=== PATIENT | female | born 1940 | race Caucasian/White ===

== ENCOUNTER → 2020-07-07 10:43 | Outpatient (BNVA) | payer MEDICARE, OTHER, SELFPAY | PROVIDERS: PCP Family Medicine; Referring Provider Family Medicine; Visit Provider Student in an Organized Health Care Education/Training Program | DX: M17.11 Unilateral primary osteoarthritis, right knee (principal) | CPT/HCPCS: 99213 ==

== ENCOUNTER → 2020-07-24 13:51 | Outpatient (BNVA) | payer MEDICARE, OTHER, SELFPAY | PROVIDERS: PCP Family Medicine; Referring Provider Family Medicine; Visit Provider Physician Assistant Surgical | DX: Z01.818 Encounter for other preprocedural examination (principal); M17.11 Unilateral primary osteoarthritis, right knee ==

== ENCOUNTER 2020-08-04 02:39 | Outpatient (CLI) | payer MEDICARE, OTHER, SELFPAY ==
[2020-08-04 12:19] LABS: Source Nasal/Nares
[2020-08-04 19:08] LABS: COVID-19 PCR Negative (Negative)
== END 2020-08-04 02:40 | disposition home or self-care (01) ==
LOC: LBO 02:40
PROVIDERS: PCP Family Medicine; Visit Provider Student in an Organized Health Care Education/Training Program
DX: Z20.822 Contact with and (suspected) exposure to COVID-19 (principal); Z01.818 Encounter for other preprocedural examination
CPT/HCPCS: 36415; 80048; 85027; 87635

== ENCOUNTER 2020-08-04 03:18 | Outpatient (CLI) | payer MEDICARE, OTHER, SELFPAY ==
[2020-08-04 10:53] LABS: HCT 39.1 % (36.0-46.0); HGB 12.8 g/dL (11.2-15.7); MCH 31.9 pg (27.0-33.0); MCHC 32.7 % (32.0-36.0); MCV 97.5 fL (80-95); MPV 10.4 fL (8.0-11.0); Platelet Count 280 10^3/uL (130-400); RBC 4.01 10^6/uL (3.93-5.22); RDW 12.5 % (11.7-14.6); RDW-SD 44.8 fL; WBC 5.55 10^3/uL (4.4-10.8)
--- NOTE | 2020-08-04 11:30 | RT.EKG_ITS ---
APPROVED REPORT Exam: Resting ECG Reason for Exam: PRE OP TKA Patient Location: O HR:49 bpm ECG Measurements Heart Rate 49 AXIS NE 166 P 47 QRSd 94 QRS 25 QT 427 T 43 QTc 385 Conclusion Sinus bradycardia...rate< 60 Atrial premature complex...SV complex w/ short R-R interval
[2020-08-04 11:52] LABS: Anion Gap 9.6 mmol/L (3-11); BUN 45 mg/dL (7-18); CO2 27.4 mmol/L (21.0-32.0); CREATININE 2.2 mg/dL (0.55-1.02); Calcium 9.6 mg/dL (8.5-10.1); Chloride 106 mmol/L (98-107); Estimated GFR 21.42 (mL/min/1.73m2); Glucose 114 mg/dL (74-106); Potassium 4.6 mmol/L (3.5-5.1); Sodium 143 mmol/L (136-145)
== END 2020-08-04 03:19 | disposition home or self-care (01) ==
LOC: LBO 03:18
PROVIDERS: PCP Family Medicine; Visit Provider Student in an Organized Health Care Education/Training Program
DX: M25.561 Pain in right knee (principal); M17.11 Unilateral primary osteoarthritis, right knee; Z01.818 Encounter for other preprocedural examination; Z01.812 Encounter for preprocedural laboratory examination
CPT/HCPCS: 36415; 80048; 85027

== ENCOUNTER 2020-08-05 07:48 | Day surgery (SDC) | payer MEDICARE, OTHER, SELFPAY ==
[2020-08-05] VITALS (9 sets, daily range): BP systolic 130–161; BP diastolic 53–68; PULSE 48–67; RESP 12–163; TEMP 35.9–36.6; O2SAT 95–99; BMI 39.5
--- NOTE | 2020-08-05 07:58 | W.ANESPOSTOP ---
Postoperative Evaluation Date, Time and Location Date Performed: 08/05/20 Time Performed: 07:58 Patient Location: Day Surgery Unit Vital Signs Most Recent Manually Entered Vital Signs: Adult Blood Pressure: 110/71 Heart Rate: 71 Respirations: 16 Oxygen Saturation (%): 99 Temperature (C): 36.4 C Pain Score (0-10 Scale): 0 Assessment Mental Status: Awake (Alert & Oriented to Patient Baseline) Airway and Respiratory Function: Patent airway with normal (patient baseline) respiratory exam Cardiovascular Function: Hemodynamically Stable Hydration Status: Adequately Hydrated Nausea & Vomiting: No Nausea or Vomiting Pain: Pt. Denies Any Pain Peripheral Nerve Block: Patient did not receive a nerve block
[2020-08-05] MEDS: Acetaminophen 500 MG TAB 1000 MG PO (08:58)
[2020-08-05] MEDS: Lactated Ringers 1,000 ML 80 ML IV (09:00)
--- NOTE | 2020-08-05 09:16 | ANES.PREOP_ITS ---
General Info Date of Service Date Performed: 08/05/20 Height: 4 ft 10 in Weight: 85.8 kg Body Mass Index (BMI): 39.5 Surgical Procedure: Operation Date: 08/05/20 09:55 Proposed Procedures Side Surgeon p Knee Total Arthroplasty Right Nomi Alvarenga MD Meds Allergies and Home Medications Allergies Allergy/AdvReac Type Severity Reaction Status Date / Time Beta-Blockers Allergy Halucinatio Unverified 08/05/20 08:14 (Beta-Adrenergic Bloc ns acetaminophen [From Percocet] AdvReac upsest Verified 08/05/20 08:14 stomach erythromycin base AdvReac Other (See Verified 08/05/20 08:49 Comment) oxycodone [From Percocet] AdvReac upsest Verified 08/05/20 08:14 stomach Home Medication Medication Instructions Recorded aspirin 81 mg PO DAILY tab-cap 08/09/17 cholecalciferol (vitamin D3) 1,000 unit PO DAILY 08/09/17 levothyroxine 100 mcg PO DAILY tab-cap 08/09/17 meclizine 12.5 mg PO TID PRN 08/09/17 omeprazole magnesium [Prilosec Otc] 20 mg PO DAILY 08/09/17 sennosides [Senna] 2 tab-cap PO DAILY tab-cap 08/10/17 acetaminophen 500 mg tablet 1,000 mg PO Q6H PRN tab 07/08/20 albuterol sulfate 90 mcg/actuation 2 puff INHALATION Q4H PRN g 07/08/20 aerosol inhaler alprazolam 1 mg disintegrating 1 mg PO TID tab 07/08/20 tablet calcium carbonate 650 mg calcium 1,300 mg PO AC tab 07/08/20 (1,625 mg) tablet diclofenac sodium 1 % topical gel 2 g TOPICAL QID 07/08/20 diltiazem HCl 120 mg 120 mg PO QHS tab-cap 07/08/20 capsule,extended release 24 hr diltiazem HCl 240 mg 240 mg PO QAM cap 07/08/20 capsule,extended release 24 hr latanoprost 0.005 % eye drops 1 drp OPHTHALMIC (EYE) DAILY 07/08/20 sodium bicarbonate 650 mg tablet 650 mg PO BID 07/08/20 Current Visit Medications: Current Medications Generic Name Dose Route Start Last Admin Trade Name Freq PRN Reason Stop Dose Admin Acetaminophen 1,000 mg 08/05/20 06:00 08/05/20 08:58 Acetaminophen 500 Mg Tab PO 08/05/20 16:00 1,000 mg PREOP MIGUEL Administration Celecoxib 400 mg 08/05/20 06:00 Celecoxib 200 Mg Cap PO 08/05/20 16:00 PREOP MIGUEL Gabapentin 300 mg 08/05/20 06:00 Gabapentin 300 Mg Cap PO 08/05/20 16:00 PREOP MIGUEL Tranexamic Acid 1,000 mg/ 60 mls @ 360 mls/hr 08/05/20 06:00 Sodium Chloride IVPB 08/05/20 16:00 PREOP MIGUEL Tranexamic Acid 1,000 mg/ 60 mls @ 360 mls/hr 08/05/20 06:00 Sodium Chloride IVPB 08/05/20 16:00 DIRECTED MIGUEL Ringer's Solution 1,000 mls @ 80 mls/hr 08/05/20 06:00 08/05/20 09:00 IV 09/03/20 23:59 80 mls/hr INFUSION MIGUEL Administration Cefazolin Sodium/Dextrose 2 gm in 50 mls @ 100 mls/hr 08/05/20 06:00 Ancef Duplex IVPB 08/05/20 16:00 PREOP MIGUEL IV Miscellaneous Supplies 1 each 08/05/20 06:00 Iv Access IV 09/03/20 23:59 DIRECTED MIGUEL Sodium Chloride 0 ml 08/05/20 06:00 Normal Saline Flush 10 Ml Syr IV 09/03/20 23:59 PRN PRN Sodium Chloride 0 ml 08/05/20 06:00 Normal Saline 10 Ml Vial IJ 09/03/20 23:59 DIRECTED PRN Sterile Water 0 ml 08/05/20 06:00 Water,Injection,Sterile 10 Ml Vial IJ 09/03/20 23:59 DIRECTED PRN PFSH Active Problems Active Problems: Problem Status Onset Code Primary osteoarthritis of right knee M17.11 Medical History Medical History Afib Medical History Comments:: Controlled gerd Surgical History Surgical History History of appendectomy age 10 History of cardiac radiofrequency ablation (RFA) 2008--[facility] Brock Rai History of tonsillectomy and adenoidectomy age 13 History of total left knee replacement (TKR) 11/06/12--[facility] Tonsillectomy and adenoidectomy Trigger finger 2013-[facility] Dr. Gabriel Tobacco Smoking/Tobacco Use Status: Never Alcohol Alcohol Intake: never Substance Use Substance use type: does not use Vital Signs and Lab Results Vital Signs Most Recent Vital Signs in EMR: Most Recent Vital Signs Temp Pulse Resp BP Pulse Ox 36.6 C 67 16 146/62 H 96 08/05/20 08:27 08/05/20 08:27 08/05/20 08:27 08/05/20 08:27 08/05/20 08:27 Lab Results Blood Type / Crossmatch: No Data to Display Complete Blood Count: White Blood Count 5.55 10^3/uL (4.4-10.8) 08/04/20 10:45 08/04/20 Red Blood Count 4.01 10^6/uL (3.93-5.22) 08/04/20 10:45 08/04/20 Hemoglobin 12.8 g/dL (11.2-15.7) 08/04/20 10:45 08/04/20 Hematocrit 39.1 % (36.0-46.0) 08/04/20 10:45 08/04/20 Platelet Count 280 10^3/uL (130-400) 08/04/20 10:45 08/04/20 Complete Metabolic Panel: Sodium Level 143 mmol/L (136-145) 08/04/20 10:45 08/04/20 Potassium Level 4.6 mmol/L (3.5-5.1) 08/04/20 10:45 08/04/20 Chloride Level 106 mmol/L (98-107) 08/04/20 10:45 08/04/20 Carbon Dioxide Level 27.4 mmol/L (21.0-32.0) 08/04/20 10:45 08/04/20 Blood Urea Nitrogen 45 mg/dL (7-18) H 08/04/20 10:45 08/04/20 Creatinine 2.2 mg/dL (0.55-1.02) H 08/04/20 10:45 08/04/20 Estimated GFR/1.73 m2 21.42 (mL/min/1.73m2) 08/04/20 10:45 08/04/20 Calcium Level 9.6 mg/dL (8.5-10.1) 08/04/20 10:45 08/04/20 Glucose Level 114 mg/dL (74-106) H 08/04/20 10:45 08/04/20 Liver Function Panel: No Data to Display Coagulation Panel: No Data to Display Cardiac Panel: No Data to Display Arterial Blood Gas: No Data to Display Venous Blood Gas: No Data to Display Pancreas Panel: No Data to Display Thyroid Panel: No Data to Display Infectious Disease: Coronavirus (COVID-19)(PCR) Negative (Negative) 08/04/20 12:04 08/04/20 Coronavirus 2019 Source Nasal/Nares 08/04/20 12:04 08/04/20 Blood Cultures: No Data to Display Toxicology Panel: No Data to Display Imaging and Studies Imaging and Studies EKG Summary: Conclusion Sinus bradycardia...rate< 60 08/04Atrial premature complex...SV complex w/ short R-R interval Anesthesia Assessment and Plan Anesthesia History Personal History: No History of Anesthesia Complications Family History: No Family History of Anesthesia Complications Exercise Tolerance Exercise Tolerance: Metabolic Equivalents<4 Pertinent Negatives Pertinent Negatives: No Symptoms of GERD ( MEd for gerd. Well controlled) and No Major Cardiovascular Symptoms or Complaints Cardiac & Pulmonary Exam Cardiac Exam: Normal S1/S2 Heart Sounds Pulmonary Exam: Clear Bilateral Breath Sounds Airway Exam Known Difficult Airway: No Mallampati Class: 2 Mouth Opening: Normal (> 3cm) Thyromental Distance: Greater than 3 cm Neck Range of Motion: Full ROM Neck Circumference: Normal Teeth Condition: Normal Dentition and Removable Dentures/Plates Upper ASA Classification ASA Score: ASA 3 Emergency Case?: No NPO Status NPO Status: NPO Clears >2 hours, Solids >8 hours Anesthesia Plan Resuscitation Status: Full Code Anesthesia Technique: Spinal Anesthesia Airway Planned: Natural Airway Pain Management: Surgeon and patient request nerve block (Adductor) Monitors Used: Standard Monitors
[2020-08-05] MEDS: Gabapentin 300 MG CAP PO (09:28)
[2020-08-05] MEDS: ceFAZolin 2 GM/50 ML BAG IVPB (09:51)
[2020-08-05] MEDS: Normal Saline 20 ML VIAL (10:41)
[2020-08-05] MEDS: Ketorolac 30 MG/ML VIAL (10:41)
[2020-08-05] MEDS: Bupivacaine 0.25% Pres-Free 30 ML VIAL (10:42)
--- NOTE | 2020-08-05 10:57 | W.ANESNERVE ---
Nerve Block Single Injection Procedure Date and Time Date Performed: 08/05/20 Procedure Start: 09:40 Location Where Procedure Performed Procedure Location: PACU Reason Performed: Postoperative Analgesia Requesting Provider: Nomi Alvarenga Timeout Performed Timeout Performed: Yes Monitoring Used ECG, Blood Pressure and SpO2 Sterility Sterility: Hand Hygiene, Surgical Cap, Surgical Mask, Sterile Gloves and Chlorhexidine Sedation Given During Procedure Sedation Given (Indicate Dose Given): Versed IV Dose:: 1.5mg Patient Mental Status Patient Mental Status: Sedate with meaningful communication Nerve Block 1st Nerve Block: Laterality: Right Block Type: Adductor Canal Needle / Catheter Used: 100mm SonoPlex II Local Anesthetic Bolus (Indicate Dose Given): Lidocaine used for local infiltration of skin (2 ml), Injected in 3-5ml increments after negative blood aspiration and Bupivacaine 0.25% Dose:: 20ml Additives (Indicate Dose Given): None Ultrasound: Sterile probe cover and gel used Ultrasound Image Saved?: Yes Nerve Stimulator: Not Used Paresthesia: None Post Procedure Pain score (0-10): 0 Procedure Tolerated: No Complications Procedure Outcome: Successful Procedure Comment: assisted by chaim surface water manager Performed By: Sam Villanueva Supervised By: Will Carney
--- NOTE | 2020-08-05 11:42 | ROE_ITS ---
Operative Note Operative Note DATE OF PROCEDURE: 08/05/20 PRE-OP DIAGNOSIS: Right Knee Osteoarthritis POST-OP DIAGNOSIS: same PROCEDURE: Right Total Knee Replacement SURGEON: Nomi Alvarenga INSTRUCTION ASSISTANT PRINCIPAL: Marlon Lopez Refer to Anesthesia Record ESTIMATED BLOOD LOSS: 150 PATHOLOGY: none sent TOURNIQUET TIME: 0 COMPLICATIONS: None Patient was transported to: PACU Patient's condition: stable Implants: 1. Depuy Attune Cementless Cruciate Retaining Femoral Component, Size 3 2. Depuy Attune Cementless Rotating Platform Tibial Component, Size 3 3. Depuy Attune 3x8 CR/RP Poly 4. Depuy Attune Patellar Component, Size 35 Indications: I have seen Ban in clinic for symptoms of knee arthritis, confirmed with radiographic findings. She has exhausted nonoperative methods and was having significant limitations in daily function and desired better function and less pain. I discussed the technical details of a knee replaceme nt. I explained the risks of the procedure to include, but not limited to, bleeding, infection, pain, stiffness, fracture, damage to nerves and vessels, damage to muscles and tendons, loosening, need for repeat procedure, blood clot and cardiopulmonary demise. Despite these risks, Ban elected to proceed. Findings: There was significant signs of arthritis throughout the knee, mostly of the medial compartment with some disease of the patella. Procedure Description: Ban was greeted in the preoperative holding area where the correct side was identified and marked. The consent was reviewed with the patient and signed. The history and physical was updated. All questions were answered. Preoperative medications were administered: Acetaminophen 1000mg, Celebrex 400mg, and Gabapentin 300mg. An adductor canal block was then administered by the anesthesia team in the PACU. She was taken back to the operating room. A spinal anesthestic was then administered. The patient was placed into the supine position on the operating room table. A nonsterile tourniquet was placed high onto the leg but only used for cementing. Posts were placed for positioning during the procedure. All bony prominences were well padded. Prophylactic antibiotics in the form of Cefazolin were administered. 1g of Tranxemic Acid was given intravenously within 30 minutes of incision. The right leg was then prepped with Chloraprep and draped in a standard fashion with impervious stockinette. A second prep with Chloraprep was performed prior to application of Iodine impregnated skin protection. A timeout to confirm correct identity, side and site, procedure, allergies, anesthesia, and medical concerns was performed. With the knee in some flexion, a midline incision was made overlying the knee. Full thickness skin flaps were raised once the extensor mechanism was encountered. These were raised medially and laterally. Any bleeding was controlled with electrocautery. Once the extensor mechanism was fully exposed, a medial parapatellar arthrotomy was performed in a flexed position. All bleeding from the arthrotomy and the geniculate arteries was coagulated. A medial subperiosteal peel was performed with electrocautery to the midcoronal plane. Due to the significant varus defor mity the entire medial tibial plateau was exposed. The fat pad was removed while keeping the patellar tendon protected. The anterior distal femur synovium was removed for later visualization. The ACL and PCL were resected and the anterior horn of the lateral meniscus was transected. The knee was then flexed with the patella everted. Large osteophytes from the tibia were removed. Large osteophytes from the femur were removed. Using a step drill, and based on preoperative templating, the femoral canal was entered. This was done with a step drill without any difficulty. The intramedullary distal femoral cut guide was inserted, set to a 5 degree valgus cut and 9mm cut thickness. There was some hypoplasia of the lateral femoral condyle and any remnant cartilage of the medial femoral condyle was removed for appropriate thickness. The distal femoral cut guide was then held in position and pinned. With the soft tissues protected, the distal cut was performed. This was passed over a few times to ensure a planar cut. I then turned attention to the tibia. The extramedullary guide was placed onto the leg. The distal aspect was slid medial to adjust for position of center of ankle and stay in line with shaft of the tibia. Approximately 3-5 degrees of posterior slope was kept in the proximal cutting guide. The center of the guide was aligned with the PCL. The stylus was used to assess cut thickness. The medial side, most involved side, was set for a 3mm cut. This was then held in position and pinned into place with 2 additional pins and a cross pin for stability. The medial and lateral collateral ligaments were protected and the cut was performed. With this completed, it was assessed and noted to be of appropriate dimensions. The guide was removed. A spacer block was inserted and the knee was brought into extension. The 8mm spacer block provided full extension, without hyperextension and with stability of both the medial and lateral collateral ligaments was assessed. The pins from the femur and the tibia were then removed. The distal femur was then sized. The anterior stylus was placed onto the lateral ridge of the anterior femur. This indicated a size 3 femur. The external rotation of the guide was adjusted to 3 degrees to match the epicondylar axis, perpendicular to Lizella?s line. The 4-in-1 cutting guide was the placed. The posterior medial femur cut was evaluated and appeared of good thickness. The spacer block was inserted underneath the cutting guide and stability was confirmed in 90 degrees of flexion. An duran wing was used to confirm appropriate position of the anterior cut to avoid notching. This cutting guide was ensured to be flush on the cut surface and then pinned into place with headed pins. While protecting the soft tissues, quad tendon, and collateral ligaments, the anterior and posterior cuts were performed with a saw. The central two pins were removed and the posterior and anterior chamfers were cut next. The notch-cutting guide was placed. This was pinned to lateralize the femoral component as much as possible while keeping it flush on the cut surface. This was then pinned into position. A reciprocating saw was used to make the notch cut. A rasp smoothed the cut surfaces. The medial and lateral menisci were removed. A trial femoral component was then inserted, impacted down to the cut surfaces, and the lug holes were drilled. A provisional trial tibial component was placed and the knee was brought through range of motion. There was noted to be excellent extension and flexion. There was no significant instability. The patella was tracking without thumbs. A size 8mm polyethylene component provided the best range of motion and stability with less than 2mm gapping with medial and lateral stress and full extension without significant hyperextension. The tibial cut surface was fully exposed. The tibia was then sized as a 3. The tibia had been previously marked during trialing to correspond to the center of the tibial component to help with rotation. The trial was aligned to this marlon, approximately rotated to the medial 1/3rd of the tibial tubercle. The trial was pinned into place. The tibia was prepared with a reamer and a keel punch and lug holes. The knee was then brought into extension and the patella was measured as 22mm. Using the patellar clamp and cut guide, this was resected to a flat surface with at least 13mm of thickness remaining. The size 35 patella fit the best. This was oriented and then clamped into position. The lugs were drilled. The trial components were removed. The final components were opened on the back table. The periosteal and capsular tissues, especially posteriorly, around the knee were then systematically injected with a periarticular cocktail consisting of 50cc 0.25% Marcaine, 30mg Ketorolac, 20cc of Exparal and 50cc of injectable saline. The knee was thoroughly irrigated with a pulse lavage and dried. Irrisept was also used to irrigate the tissues. On the back table, with the implants opened, the cement was mixed. One batch of high viscosity cement was prepared with vacuum assistance. After the cement was ready a small amount was placed on the cut surface of the patella and the patellar button was clamped into position and held. While the cement was hardening, the cementless knee components were placed. Starting with the tibial component, the tibia was subluxed anteriorly and the lug holes of the component were lined up. The tibia was then impacted with an impactor and mallet until the tibial component was in contact with the tibia. The final polyethylene component was inserted. Then, the femoral component was inserted. The lug holes were aligned and the component was impacted into position. The knee was irrigated with Irrisept chlorhexadine solution. This was allowed to sit in the knee for 3 minutes. After the cement had finally cured, approximately 15min, the clamp was removed from the patella and the knee was taken through range of motion. The patella was tracking with a no-thumbs technique. The capsule was then reapproximated with a No. 1 Vicryl at multiple locations. The capsule was finally closed with a No. 2 Stratafix, barbed suture. The second dosing of 1g TXA was started. Deep tissues were then reapproximated with 0 Vicryl and 2-0 Vicryl. The skin was closed with a running 3-0 Monocryl in a subcuticular fashion. This was reinforced with skin glue. A Mepilex silver dressing was applied along with a [id number] TRACY wrap. A CryoCuff was a pplied. Ban was transferred to the hospital bed without difficulty an suffering no apparent complication. Ban has a good prognosis. Physical therapy will start today and without restrictions, weight-bearing as tolerated. Aspirin 81mg BID will be used for DVT prophylaxis.
--- NOTE | 2020-08-05 13:13 | W.ANESPOSTOP ---
Postoperative Evaluation Date, Time and Location Date Performed: 08/05/20 Time Performed: 13:14 Patient Location: Day Surgery Unit Vital Signs Most Recent Imported Vital Signs: Most Recent Vital Signs Temp Pulse Resp BP Pulse Ox 35.9 C L 61 163 H 130/63 95 08/05/20 13:06 08/05/20 13:06 08/05/20 13:06 08/05/20 13:06 08/05/20 13:06 Pain Score Most Recent Pain Score: Most Recent Pain Score Pain Level 0 1 08/05/20 13:06 Assessment Mental Status: Awake (Alert & Oriented to Patient Baseline) Airway and Respiratory Function: Patent airway with normal (patient baseline) respiratory exam Cardiovascular Function: Hemodynamically Stable Hydration Status: Adequately Hydrated Nausea & Vomiting: No Nausea or Vomiting Pain: Pain is tolerable per patient (Reports only slight ache) Peripheral Nerve Block: Regional nerve block not resolved at time of post operative discharge
--- NOTE | 2020-08-05 14:09 | PDOC.DSDIS_ITS ---
Discharge Plan Disposition Patient Disposition: HOME Condition: Good Discharge Details Reason For Visit: OA (R) KNEE Attending Provider: Nomi Alvarenga Home Meds and New Rx's Prescriptions: New acetaminophen 500 mg tablet 500 mg PO Q6H PRN PRN (Reason: pain) Qty: 90 RF: 3 aspirin 81 mg tablet,delayed release (DR/EC) 81 mg PO BID Qty: 60 RF: 0 hydrocodone-acetaminophen 5-325 mg tablet 1 tab PO Q4H PRN (Reason: pain) Qty: 14 RF: 0 gabapentin 300 mg capsule 300 mg PO QHS Qty: 7 RF: 0 Continued meclizine 12.5 MG tablet 12.5 mg PO TID PRNRF: 0 levothyroxine 100 MCG tablet 100 mcg PO DAILY RF: 0 omeprazole magnesium [Prilosec OTC] 20 MG tablet,delayed release (DR/EC) 20 mg PO DAILY RF: 0 cholecalciferol (vitamin D3) 1,000 UNIT tablet 1,000 unit PO DAILY RF: 0 sennosides [senna] 8.6 MG tablet 2 tab-cap PO DAILY RF: 0 alprazolam 1 mg tablet,disintegrating 1 mg PO TID RF: 0 calcium carbonate 650 mg calcium (1,625 mg) tablet 1,300 mg PO AC RF: 0 diclofenac sodium [Arthritis Pain (diclofenac)] 1 % gel 2 g topical QID RF: 0 diltiazem HCl 120 mg capsule,extended release 24hr 120 mg PO QHS RF: 0 diltiazem HCl 240 mg capsule,extended release 24hr 240 mg PO QAM RF: 0 latanoprost 0.005 % drops 1 drp ophthalmic (eye) DAILY RF: 0 sodium bicarbonate 650 mg tablet 650 mg PO BID RF: 0 albuterol sulfate [Ventolin HFA] 90 mcg/actuation HFA aerosol inhaler 2 puff inhalation Q4H PRNRF: 0 Discontinued aspirin 81 MG tablet,chewable 81 mg PO DAILY RF: 0 acetaminophen [Tylenol Extra Strength] 500 mg tablet 1,000 mg PO Q6H PRNRF: 0 Discharge Instructions Additional Instructions: Total Knee Discharge Instructions Activity: The most important activity is to walk. You should try to take short walks a few times a day. It is important that when resting you work on keeping the knee straight. Avoid putting a pillow behind the knee as this will encourage flexion. Work on range of motion exercises as provided by Physical Therapy. - Start outpatient physical therapy within 2 weeks. - You should wear the CLARICE hose on both legs for 2 weeks. You may remove these at night. You may also use any compression sock in place of the CLARICE hose. Dressing: You may remove the Dimitry wrap on your leg 2 days after your surgery and put on the CLARICE stocking given to you from the hospital. Keep the surgical dressing (underneath the DIMITRY wrap) in place for at least one week. After the first week it may be removed and replaced with light gauze and tape or nothing. The wound and dressing may get wet after 3 days but avoid soaking the dressing or otherwise it will need to be changed. Many people prefer covering the dressing with cling wrap (saran wrap) to minimize it from getting soaked. If it gets wet, just pat dry. If it starts to peel off then it will need to be changed . Medications: - You should take Tylenol as your primary pain control medications. - You have been prescribed a stronger pain medication Hydrocodone for breakthrough pain, take as needed as prescribed. - You should continue your stomach acid reduction agent Omeprazole to help reduce stomach acid and reflux. - You have been prescribed Gabapentin to take at night for restlessness and nerve pain. - You will be taking Aspirin 81mg twice a day for DVT prevention unless instructed otherwise. - If you have constipation you should take Colace or Miralax (both [id number]). It takes most people 3-4 days to have a bowel movement. Follow-up: 2 weeks If you have any acute concerns or questions, please do not hesitate to contact the office at [phone]. You may contact Dr. Alvarenga with any questions after hours through the hospital at [phone] or on his cell phone at [phone]. Referrals: Nomi Alvarenga MD [ [facility] STAFF PHYSICIAN] - Equipment/Supplies: Walker Activity:: Activity as Tolerated Shower/Bathe:: 72 hours Diet:: As Tolerated Discharge Orders Discharge Orders: Discharge Order (Routine); Ordered 08/05/20 Ordered By: Nomi Alvarenga DS: Diagnosis Discharge Diagnosis (1) Primary osteoarthritis of right knee: Status: Acute
--- NOTE | 2020-08-05 14:17 | IN_ITS ---
Date of service: 08/05/20 Time of Service: 13:45 PT Notes Visit Reasons: OA (R) KNEE Inpatient Physical Therapy Evaluation Date: 08/05/2020 Referring Doctor: Silvestre Lopez PT Orders: PT CONSULT: Status post right TKA Precautions: Fall, standard Patient Profile/Admitting Diagnosis: Patient postop day 0 status post right total knee replacement. PMHX: History of appendectomy age 10 History of cardiac radiofrequency ablation (RFA) 2008--[facility] Brock Rai History of tonsillectomy and adenoidectomy age 13 History of total left knee replacement (TKR) 11/06/12--[facility] Tonsillectomy and adenoidectomy Trigger finger 2013-[facility] Dr. Gabriel Social History/Home Situation: Patient lives alone in a home with 3 steps to enter. States that she is very active and does not utilize an assistive device at baseline. She owns both and FW W and a Rollator walker. Plans to stay with her sister for as long as she needs. Her sister has a single level home with 0 steps to enter. Equipment Owned/DME: FW W, 4 WW Subjective: Ban states that she is feeling well. She rates her pain at 0/10. States that she is very active, and is looking forward to getting back to her normal activities. She reports knee instability prior to surgery, although was able to walk independently. States that she was managing stairs 1 step at a time. Objective: General Observation: Resting in bed in initiation of session. IV in right upper extremity, Cryo/Cuff in place to right knee. Mental Status: A and O x3 Pain: 0/10 Vital Signs: Monitored by nursing ROM: Right Upper Extremity: WFL Left Upper Extremity: WFL Right Lower Extremity: Patient actively demonstrates 0 to 90 degrees of knee flexion. PROM not assessed. Left Lower Extremity: WFL Strength: Right Upper Extremity: WFL Left Upper Extremity: WFL Right Lower Extremity: Patient able to perform active SLR without extension lag. Demonstrates strong quad setting. Able to pump ankle and wiggle toes. Left Lower Extremity: Quads 4+/5. Sensation: Intact distally Bed Mobility/Transfers: Supine?sit: Independent Sit?stand: Independent Stand?sit: Independent, with cues for safety Gait: Patient ambulates 50 feet x 2 with FW W, CGA Stairs: Patient manages therapeutic stairs, ascending and descending 6 inch stairs x2 with bilateral upper extremity support to rails and CGA. She received patient education for technique and safety. Balance: Static Sitting: Normal Dynamic Sitting: Normal Static Standing: Good Dynamic Standing: Fair Special Tests: Mobility Limitations Standardized Measure [facility] AM-PAC 6 clicks Basic Mobility Inpatient Short Form: Raw Score: 23 CMS Score: 11% deficit Informed Consent/Education: Patient instructed in purpose of PT consult and plan of care. Treatment: Patient was provided with a postop packet, and instructed in ant iembolic exercises and early quad strengthening in open chain. She is able to demonstrate effectively and verbalized understanding. Assessment: Patient is a 80 year old female referred to physical therapy services with the diagnosis of right knee OA, status post right TKA postop day 0. Patient presents with clinical signs and symptoms consistent with diagnosis, as demonstrated by the following impairment level findings: 1. Gait impairment 2. Strength and ROM loss consistent with postop status Impairments are contributing to the following functional limitations: 1. Decreased tolerance to community distance ambulation 2. Decreased ability to manage stairs independently 3. Decreased safety with FW W management Patient is assessed as Low [id number] complexity based on the following: History: Patient is an 80-year-old female with history of right knee OA, now postop day 0 status post right TKA. She required patient education and gait and transfer training to allow for safe transition back home. She plans to stay with her sister for postop care. Posttreatment, she is able to demonstrate safe transfers, ambulation, and stair management, and is appropriate for discharge home once medically stable. Examination: Functional limitations as noted above Presentation: Stable Decision Making: Low complexity Plan of Care/Treatment Plan: Discharge from PT in acute care setting. DISCHARGE RECOMMENDATIONS: Home with outpatient PT (patient scheduled in [place] 08/12/2020) TREATMENT CODE/TIME: 145?210 ([id number]) Niurka Pimentel, PT, DPT [facility]
== END 2020-08-05 15:10 | disposition home or self-care (01) ==
PROVIDERS: Visit Provider Student in an Organized Health Care Education/Training Program
PROC: (CPT 27447; principal; 2020-08-05 09:45)
DX: M17.11 Unilateral primary osteoarthritis, right knee (principal); I48.91 Unspecified atrial fibrillation; K21.9 Gastro-esophageal reflux disease without esophagitis
CPT/HCPCS: 27447; 76942; 97161; J0690; J1885; J2250

== ENCOUNTER 2020-08-21 13:31 | Outpatient (CLI) | payer MEDICARE, OTHER, SELFPAY ==
--- NOTE | 2020-08-21 11:45 | DI.RAD_ITS ---
Exam(s) XR KNEE RT 1V XR STANDING ALIGNMENT EXAM: XR STANDING ALIGNMENT CLINICAL HISTORY: 1ST POSTOP R TKA. TECHNIQUE: 2D digital imaging was performed. Standing AP views were performed from the pelvis throu gh the ankles. COMPARISON: DX MO KNEE RIGHT MIN 4V from 11/20/2018 DX MO KNEE RIGHT MIN 4V from 11/20/2018 CR BONE LENGTH STUDIES from 09/26/2019 CR KNEE RIGHT MIN 4V from 10/02/2019 CR KNEE RIGHT MIN 4V from 10/02/2019 CR XR KNEE RT 1V from 08/21/2020 CR XR KNEE RT 1V from 08/21/2020 FINDINGS: BONES: No acute fracture is present. No bony destructive lesion is seen. JOINTS: Knees: Bilateral total knee prostheses.The right the prosthesis is new when compared with the previous exam. The left knee prosthesis appears unchanged. The ankle and hip joints are unremarkable. SOFT TISSUE: Normal. IMPRESSION: Bilateral total knee prostheses. No significant leg length discrepancy. DATA REPOSITORY: RADIATION DOSE DELIVERED:
== END 2020-08-21 13:32 | disposition home or self-care (01) ==
LOC: DIORS 13:39
PROVIDERS: Visit Provider Physician Assistant Surgical
DX: Z96.651 Presence of right artificial knee joint (principal); Z47.1 Aftercare following joint replacement surgery
CPT/HCPCS: 73560; 77073

== ENCOUNTER → 2020-09-18 10:48 | Outpatient (BNVA) | payer MEDICARE, OTHER, SELFPAY | PROVIDERS: Visit Provider Student in an Organized Health Care Education/Training Program | DX: Z47.1 Aftercare following joint replacement surgery (principal); Z96.651 Presence of right artificial knee joint ==

== ENCOUNTER → 2020-10-30 10:32 | Outpatient (BNVA) | payer MEDICARE, OTHER, SELFPAY | PROVIDERS: PCP Internal Medicine; Referring Provider Internal Medicine; Visit Provider Student in an Organized Health Care Education/Training Program | DX: Z47.1 Aftercare following joint replacement surgery (principal); Z96.651 Presence of right artificial knee joint ==

== ENCOUNTER 2020-12-31 02:41 | Outpatient (CLI) | payer MEDICARE, OTHER, SELFPAY ==
[2020-12-31 10:51] LABS: Source Nasal/Nares
[2020-12-31 14:12] LABS: COVID-19 PCR Negative (Negative)
== END 2020-12-31 02:42 | disposition home or self-care (01) ==
LOC: LBO 02:41
PROVIDERS: Visit Provider Ophthalmology
DX: Z20.822 Contact with and (suspected) exposure to COVID-19 (principal); Z01.818 Encounter for other preprocedural examination
CPT/HCPCS: 87635

== ENCOUNTER 2021-01-02 10:50 | Day surgery (SDC) | payer MEDICARE, OTHER, SELFPAY ==
--- NOTE | 2021-01-02 07:26 | ANES.PREOP_ITS ---
General Info Date of Service Date Performed: 01/02/21 Height: 4 ft 10 in Weight: 83.461 kg Body Mass Index (BMI): 38.4 Surgical Procedure: Operation Date: 01/02/21 14:40 Proposed Procedures Side Surgeon p Intraocular Stent Placement/IOL Implant Right River Rivera MD Meds Allergies and Home Medications Allergies Allergy/AdvReac Type Severity Reaction Status Date / Time Beta-Blockers Allergy Halucinatio Verified 01/02/21 11:12 (Beta-Adrenergic Bloc ns acetaminophen [From Percocet] AdvReac upsest Verified 01/02/21 11:12 stomach erythromycin base AdvReac upset Verified 01/02/21 11:12 stomach oxycodone [From Percocet] AdvReac upsest Verified 01/02/21 11:12 stomach Home Medication Medication Instructions Recorded cholecalciferol (vitamin D3) 1,000 unit PO DAILY 08/09/17 levothyroxine 100 mcg PO DAILY tab-cap 08/09/17 meclizine 12.5 mg PO TID PRN 08/09/17 omeprazole magnesium [Prilosec OTC] 20 mg PO DAILY 08/09/17 sennosides [senna] 2 tab-cap PO DAILY tab-cap 08/10/17 albuterol sulfate 90 mcg/actuation 2 puff INHALATION Q4H PRN g 07/08/20 aerosol inhaler alprazolam 1 mg disintegrating 1 mg PO TID tab 07/08/20 tablet calcium carbonate 650 mg calcium 1,300 mg PO AC tab 07/08/20 (1,625 mg) tablet diclofenac sodium 1 % topical gel 2 g TOPICAL QID 07/08/20 diltiazem HCl 120 mg 120 mg PO QHS tab-cap 07/08/20 capsule,extended release 24 hr diltiazem HCl 240 mg 240 mg PO QAM cap 07/08/20 capsule,extended release 24 hr latanoprost 0.005 % eye drops 1 drp OPHTHALMIC (EYE) DAILY 07/08/20 sodium bicarbonate 650 mg tablet 650 mg PO BID 07/08/20 acetaminophen 500 mg PO Q6H PRN PRN #90 tab 08/05/20 aspirin 81 mg tablet,delayed 81 mg PO DAILY tab 09/18/20 release ketoconazole 1 applic TOPICAL DAILY 01/01/21 Current Visit Medications: Current Medications Generic Name Dose Route Start Last Admin Trade Name Freq PRN Reason Stop Dose Admin Acetaminophen 1,000 mg 01/02/21 06:00 Acetaminophen 500 Mg Tab PO Q4H PRN PRN Miscellaneous Medication 0 ml 01/02/21 06:00 Prednisolone 1%, Moxifloxacin 0.5%, Nepafenac 0.1% 5ml Btl OD DIRECTED [facility] Miscellaneous Medication 0 ml 01/02/21 06:00 Tropicam./Phenyleph. (1/2.5%) 5 Ml Btl OD DIRECTED [facility] Tetracaine HCl 0 ml 01/02/21 06:00 Tetracaine 0.5% 4 Ml Btl OD DIRECTED [facility] PFSH Active Problems Active Problems: Problem Status Onset Code History of total right knee replacement Z96.651 Nuclear sclerotic cataract of right eye H25.11 Cortical cataract of right eye H26.9 Medical History Active Problem List (Updated 01/01/21 @ 08:50 by Russ Berry) History of total right knee replacement (Acute) Nuclear sclerotic cataract of right eye (Acute) Cortical cataract of right eye (Acute) Medical History (Updated 01/01/21 @ 08:50 by Russ Berry) Afib Anxiety disorder Chronic kidney disease (CKD) Glaucoma Hypertensive disorder Hypothyroidism Osteoarthritis of knee Medical History Comments:: Controlled gerd Surgical History Surgical History History of appendectomy age 10 History of cardiac radiofrequency ablation (RFA) 2008--[facility] [facility] Brock Rai History of tonsillectomy and adenoidectomy age 13 History of total left knee replacement (TKR) 11/06/12--[facility] Tonsillectomy and adenoidectomy Trigger finger 2013-[facility] Dr. Gabriel Tobacco Smoking/Tobacco Use Status: Never Alcohol Alcohol Intake: never Substance Use Substance use type: does not use Vital Signs and Lab Results Lab Results Blood Type / Crossmatch: No Data to Display Complete Blood Count: No Data to Display Complete Metabolic Panel: No Data to Display Liver Function Panel: No Data to Display Coagulation Panel: No Data to Display Cardiac Panel: No Data to Display Arterial Blood Gas: No Data to Display Venous Blood Gas: No Data to Display Pancreas Panel: No Data to Display Thyroid Panel: No Data to Display Infectious Disease: Coronavirus (COVID-19)(PCR) Negative (Negative) 12/31/20 10:28 12/31/20 Coronavirus 2019 Source Nasal/Nares 12/31/20 10:28 12/31/20 Blood Cultures: No Data to Display Toxicology Panel: No Data to Display Imaging and Studies Imaging and Studies EKG Summary: Conclusion Sinus bradycardia...rate< 60 08/04Atrial premature complex...SV complex w/ short R-R interval Anesthesia Assessment and Plan Anesthesia History Personal History: No History of Anesthesia Complications Family History: No Family History of Anesthesia Complications Exercise Tolerance Exercise Tolerance: Metabolic Equivalents<4 Cardiac & Pulmonary Exam Cardiac Exam: Normal S1/S2 Heart Sounds Pulmonary Exam: Clear Bilateral Breath Sounds Implantable Cardiac Device Does patient have a Pacemaker or an ICD?: No Airway Exam Known Difficult Airway: No Mallampati Class: 2 Mouth Opening: Normal (> 3cm) Thyromental Distance: Greater than 3 cm Neck Range of Motion: Full ROM Neck Circumference: Normal Teeth Condition: Normal Dentition and Removable Dentures/Plates Upper ASA Classification ASA Score: ASA 3 Emergency Case?: No NPO Status NPO Status: NPO Clears >2 hours, Solids >8 hours Anesthesia Plan Resuscitation Status: Full Code Anesthesia Technique: MAC Anesthesia Airway Planned: Natural Airway Monitors Used: Standard Monitors Preoperative Comments:: 80 yo female for cataract/stent placement. Sig PMHx: afib (dilt), CKDIII, HTN, Hypothyroid (on replacement), never smoker. discussed risks, benefits and alternatives. would like to start without anything, if needed an IV will be placed and a small amount of midaz will be given.
[2021-01-02 11:21] VITALS: BMI 38.4
[2021-01-02 11:27] VITALS: BP 162/77; PULSE 70; RESP 16; TEMP 36.4; O2SAT 98
[2021-01-02] MEDS: Tropicam./Phenyleph. (1/2.5%) 5 ML BTL OD ×3 (11:36→11:48)
[2021-01-02] MEDS: Tetracaine 0.5% 4 ML BTL OD (12:33)
[2021-01-02] MEDS: Balanced Salt Soln.-PLUS 500 ML BAG (12:34)
[2021-01-02] MEDS: Duovisc Viscoelastic System EACH 1 EACH (12:35)
[2021-01-02] MEDS: Lidocaine 2% Jelly 6 ML SYR (12:36)
[2021-01-02] MEDS: Povidone-Iodine Ophth 30 ML BTL (12:38)
--- NOTE | 2021-01-02 13:01 | W.PM.DSUDISC ---
Discharge Plan Disposition Patient Disposition: HOME Condition: Good Discharge Details Attending Provider: River Rivera Primary Care Provider: Unknown,Unknown Home Meds and New Rx's Prescriptions: No Action aspirin 81 mg tablet,delayed release (DR/EC) 81 mg PO DAILY RF: 0 meclizine 12.5 MG tablet 12.5 mg PO TID PRNRF: 0 levothyroxine 100 MCG tablet 100 mcg PO DAILY RF: 0 omeprazole magnesium [Prilosec OTC] 20 MG tablet,delayed release (DR/EC) 20 mg PO DAILY RF: 0 cholecalciferol (vitamin D3) 1,000 UNIT tablet 1,000 unit PO DAILY RF: 0 sennosides [senna] 8.6 MG tablet 2 tab-cap PO DAILY RF: 0 alprazolam 1 mg tablet,disintegrating 1 mg PO TID RF: 0 calcium carbonate 650 mg calcium (1,625 mg) tablet 1,300 mg PO AC RF: 0 diclofenac sodium [Arthritis Pain (diclofenac)] 1 % gel 2 g topical QID RF: 0 diltiazem HCl 120 mg capsule,extended release 24hr 120 mg PO QHS RF: 0 diltiazem HCl 240 mg capsule,extended release 24hr 240 mg PO QAM RF: 0 latanoprost 0.005 % drops 1 drp ophthalmic (eye) DAILY RF: 0 sodium bicarbonate 650 mg tablet 650 mg PO BID RF: 0 albuterol sulfate [Ventolin HFA] 90 mcg/actuation HFA aerosol inhaler 2 puff inhalation Q4H PRNRF: 0 acetaminophen 500 mg tablet 500 mg PO Q6H PRN PRN (Reason: pain) Qty: 90 RF: 3 ketoconazole 2 % Cream 1 applic TOPICAL DAILY RF: 0 Discharge Instructions Stand Alone Forms: Post-op Topical Cataract, Alexis Jones (DSU) Discharge Orders Discharge Orders: Discharge Order (Routine); Ordered 01/02/21 Ordered By: River Rivera DS: Diagnosis Discharge Diagnosis (1) Primary open angle glaucoma (POAG) of right eye, mild stage: Status: Chronic (2) Nuclear sclerotic cataract of right eye: Status: Resolved (3) Cortical cataract of right eye: Status: Resolved
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
[2021-01-02 13:05] VITALS: BP 167/73; PULSE 78; RESP 16; TEMP 36.2; O2SAT 97
--- NOTE | 2021-01-02 13:10 | W.ANESPOSTOP ---
Postoperative Evaluation Date, Time and Location Date Performed: 01/02/21 Time Performed: 13:10 Patient Location: Day Surgery Unit Vital Signs Most Recent Imported Vital Signs: Most Recent Vital Signs Temp Pulse Resp BP Pulse Ox 36.2 C L 78 16 167/73 H 97 01/02/21 13:05 01/02/21 13:05 01/02/21 13:05 01/02/21 13:05 01/02/21 13:05 Pain Score Most Recent Pain Score: Most Recent Pain Score Pain Level 0 01/02/21 13:05 Assessment Mental Status: Awake (Alert & Oriented to Patient Baseline) Airway and Respiratory Function: Patent airway with normal (patient baseline) respiratory exam Cardiovascular Function: Hemodynamically Stable Hydration Status: Adequately Hydrated Nausea & Vomiting: No Nausea or Vomiting Pain: Pt. Denies Any Pain Peripheral Nerve Block: Patient did not receive a nerve block
== END 2021-01-02 13:33 | disposition home or self-care (01) ==
PROVIDERS: Visit Provider Ophthalmology
PROC: (CPT 66982; principal; 2021-01-02 14:30)
DX: H40.1111 Primary open-angle glaucoma, right eye, mild stage (principal); H25.11 Age-related nuclear cataract, right eye; H57.03 Miosis
CPT/HCPCS: 66982; 0191T; V2632; C1783

== ENCOUNTER 2021-01-09 02:31 | Outpatient (CLI) | payer MEDICARE, OTHER, SELFPAY ==
[2021-01-09 11:15] LABS: Source Nasal/Nares
[2021-01-09 14:10] LABS: COVID-19 PCR Negative (Negative)
== END 2021-01-09 02:32 | disposition home or self-care (01) ==
LOC: LBO 02:31
PROVIDERS: Visit Provider Ophthalmology
DX: Z20.822 Contact with and (suspected) exposure to COVID-19 (principal); Z01.818 Encounter for other preprocedural examination
CPT/HCPCS: 87635

== ENCOUNTER 2021-01-12 09:58 | Day surgery (SDC) | payer MEDICARE, OTHER, SELFPAY ==
[2021-01-12] MEDS: Tropicam./Phenyleph. (1/2.5%) 5 ML BTL OS ×3 (10:58→11:20)
[2021-01-12 11:00] VITALS: BP 162/75; PULSE 66; RESP 16; TEMP 36.1; O2SAT 97
--- NOTE | 2021-01-12 11:31 | ANES.PREOP_ITS ---
General Info Date of Service Date Performed: 01/12/21 Height: 4 ft 10 in Weight: 86.4 kg Body Mass Index (BMI): 39.8 Surgical Procedure: Operation Date: 01/12/21 13:40 Proposed Procedures Side Surgeon p Cataract Extraction with IOL Implant Left River Rivera MD Meds Allergies and Home Medications Allergies Allergy/AdvReac Type Severity Reaction Status Date / Time Beta-Blockers Allergy Halucinatio Verified 01/02/21 11:12 (Beta-Adrenergic Bloc ns acetaminophen [From Percocet] AdvReac upsest Verified 01/02/21 11:12 stomach erythromycin base AdvReac upset Verified 01/02/21 11:12 stomach oxycodone [From Percocet] AdvReac upsest Verified 01/02/21 11:12 stomach Home Medication Medication Instructions Recorded cholecalciferol (vitamin D3) 1,000 unit PO DAILY 08/09/17 levothyroxine 100 mcg PO DAILY tab-cap 08/09/17 meclizine 12.5 mg PO TID PRN 08/09/17 omeprazole magnesium [Prilosec OTC] 20 mg PO DAILY 08/09/17 sennosides [senna] 2 tab-cap PO DAILY tab-cap 08/10/17 albuterol sulfate 90 mcg/actuation 2 puff INHALATION Q4H PRN g 07/08/20 aerosol inhaler alprazolam 1 mg disintegrating 1 mg PO TID tab 07/08/20 tablet calcium carbonate 650 mg calcium 1,300 mg PO AC tab 07/08/20 (1,625 mg) tablet diclofenac sodium 1 % topical gel 2 g TOPICAL QID 07/08/20 diltiazem HCl 120 mg 120 mg PO QHS tab-cap 07/08/20 capsule,extended release 24 hr diltiazem HCl 240 mg 240 mg PO QAM cap 07/08/20 capsule,extended release 24 hr latanoprost 0.005 % eye drops 1 drp OPHTHALMIC (EYE) DAILY 07/08/20 sodium bicarbonate 650 mg tablet 650 mg PO BID 07/08/20 acetaminophen 500 mg PO Q6H PRN PRN #90 tab 08/05/20 aspirin 81 mg tablet,delayed 81 mg PO DAILY tab 09/18/20 release ketoconazole 1 applic TOPICAL DAILY 01/01/21 Current Visit Medications: Current Medications Generic Name Dose Route Start Last Admin Trade Name Freq PRN Reason Stop Dose Admin Acetaminophen 1,000 mg 01/12/21 06:00 Acetaminophen 500 Mg Tab PO Q4H PRN PRN Miscellaneous Medication 0 ml 01/12/21 06:00 Prednisolone 1%, Moxifloxacin 0.5%, Nepafenac 0.1% 5ml Btl OS DIRECTED MIGUEL Miscellaneous Medication 0 ml 01/12/21 06:00 01/12/21 11:20 Tropicam./Phenyleph. (1/2.5%) 5 Ml Btl OS 1 drp DIRECTED MIGUEL Administration Tetracaine HCl 0 ml 01/12/21 06:00 Tetracaine 0.5% 4 Ml Btl OS DIRECTED MIGUEL PFSH Active Problems Active Problems: Problem Status Onset Code Primary open angle glaucoma (POAG) of right eye, mild stage H40.1111 History of total right knee replacement Z96.651 Nuclear sclerotic cataract of right eye H25.11 Cortical cataract of right eye H26.9 Medical History Active Problem List (Updated 01/02/21 @ 13:02 by River Rivera MD) Primary open angle glaucoma (POAG) of left eye, mild stage (Acute) Nuclear sclerotic cataract of left eye (Acute) Cortical cataract of left eye (Acute) Primary open angle glaucoma (POAG) of right eye, mild stage (Chronic) History of total right knee replacement (Acute) Medical History (Updated 01/12/21 @ 11:46 by River Rivera MD) Afib Anxiety disorder Chronic kidney disease (CKD) Glaucoma Hypertensive disorder Hypothyroidism Osteoarthritis of knee Medical History Comments:: Controlled gerd Surgical History Surgical History (Updated 01/02/21 @ 13:02 by River Rivera MD) History of appendectomy age 10 History of cardiac radiofrequency ablation (RFA) 2008--[facility] Brock Rai History of tonsillectomy and adenoidectomy age 13 History of total left knee replacement (TKR) 11/06/12--[facility] Tonsillectomy and adenoidectomy Trigger finger 2013-[facility] Dr. Gabriel Tobacco Smoking/Tobacco Use Status: Never Alcohol Alcohol Intake: never Substance Use Substance use type: does not use Vital Signs and Lab Results Vital Signs Most Recent Vital Signs in EMR: Most Recent Vital Signs Temp Pulse Resp BP Pulse Ox 36.1 C L 66 16 162/75 H 97 01/12/21 11:00 01/12/21 11:00 01/12/21 11:00 01/12/21 11:00 01/12/21 11:00 Lab Results Blood Type / Crossmatch: No Data to Display Complete Blood Count: No Data to Display Complete Metabolic Panel: No Data to Display Liver Function Panel: No Data to Display Coagulation Panel: No Data to Display Cardiac Panel: No Data to Display Arterial Blood Gas: No Data to Display Venous Blood Gas: No Data to Display Pancreas Panel: No Data to Display Thyroid Panel: No Data to Display Infectious Disease: Coronavirus (COVID-19)(PCR) Negative (Negative) 01/09/21 09:07 01/09/21 Coronavirus 2019 Source Nasal/Nares 01/09/21 09:07 01/09/21 Blood Cultures: No Data to Display Toxicology Panel: No Data to Display Imaging and Studies Imaging and Studies EKG Summary: Conclusion Sinus bradycardia...rate< 60 08/04Atrial premature complex...SV complex w/ short R-R interval Anesthesia Assessment and Plan Anesthesia History Personal History: No History of Anesthesia Complications Family History: No Family History of Anesthesia Complications Exercise Tolerance Exercise Tolerance: Metabolic Equivalents<4 Cardiac & Pulmonary Exam Cardiac Exam: Normal S1/S2 Heart Sounds Pulmonary Exam: Clear Bilateral Breath Sounds Implantable Cardiac Device Does patient have a Pacemaker or an ICD?: No Airway Exam Known Difficult Airway: No Mallampati Class: 2 Mouth Opening: Normal (> 3cm) Thyromental Distance: Greater than 3 cm Neck Range of Motion: Full ROM Neck Circumference: Normal Teeth Condition: Normal Dentition and Removable Dentures/Plates Upper ASA Classification ASA Score: ASA 2 Emergency Case?: No NPO Status NPO Status: NPO Clears >2 hours, Solids >8 hours Anesthesia Plan Resuscitation Status: Full Code Anesthesia Technique: MAC Anesthesia Airway Planned: Natural Airway Monitors Used: Standard Monitors
--- NOTE | 2021-01-12 11:45 | W.PM.DSUDISC ---
Discharge Plan Disposition Patient Disposition: HOME Condition: Good Discharge Details Attending Provider: River Rivera Primary Care Provider: Unknown,Unknown Home Meds and New Rx's Prescriptions: No Action aspirin 81 mg tablet,delayed release (DR/EC) 81 mg PO DAILY RF: 0 meclizine 12.5 MG tablet 12.5 mg PO TID PRNRF: 0 levothyroxine 100 MCG tablet 100 mcg PO DAILY RF: 0 omeprazole magnesium [Prilosec OTC] 20 MG tablet,delayed release (DR/EC) 20 mg PO DAILY RF: 0 cholecalciferol (vitamin D3) 1,000 UNIT tablet 1,000 unit PO DAILY RF: 0 sennosides [senna] 8.6 MG tablet 2 tab-cap PO DAILY RF: 0 alprazolam 1 mg tablet,disintegrating 1 mg PO TID RF: 0 calcium carbonate 650 mg calcium (1,625 mg) tablet 1,300 mg PO AC RF: 0 diclofenac sodium [Arthritis Pain (diclofenac)] 1 % gel 2 g topical QID RF: 0 diltiazem HCl 120 mg capsule,extended release 24hr 120 mg PO QHS RF: 0 diltiazem HCl 240 mg capsule,extended release 24hr 240 mg PO QAM RF: 0 latanoprost 0.005 % drops 1 drp ophthalmic (eye) DAILY RF: 0 sodium bicarbonate 650 mg tablet 650 mg PO BID RF: 0 albuterol sulfate [Ventolin HFA] 90 mcg/actuation HFA aerosol inhaler 2 puff inhalation Q4H PRNRF: 0 acetaminophen 500 mg tablet 500 mg PO Q6H PRN PRN (Reason: pain) Qty: 90 RF: 3 ketoconazole 2 % Cream 1 applic TOPICAL DAILY RF: 0 Discharge Instructions Stand Alone Forms: Post-op Topical Cataract, Alexis Echevarriaey (DSU) Discharge Orders Discharge Orders: Discharge Order (Routine); Ordered 01/12/21 Ordered By: River Rivera DS: Diagnosis Discharge Diagnosis (1) Cortical cataract of left eye: Status: Resolved (2) Nuclear sclerotic cataract of left eye: Status: Resolved (3) 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
[2021-01-12 11:46] VITALS: BMI 39.8
[2021-01-12] MEDS: Lidocaine 2% Jelly 6 ML SYR (11:58)
[2021-01-12] MEDS: Povidone-Iodine Ophth 30 ML BTL (11:58)
[2021-01-12] MEDS: Tetracaine 0.5% 4 ML BTL OS (11:58)
[2021-01-12] MEDS: Balanced Salt Soln.-PLUS 500 ML BAG (12:14)
[2021-01-12] MEDS: Trypan Blue 0.06% 0.5 ML SYR (12:14)
[2021-01-12] MEDS: Duovisc Viscoelastic System EACH 1 EACH (12:14)
[2021-01-12 12:39] VITALS: BP 168/72; PULSE 58; RESP 16; TEMP 36.1; O2SAT 97
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
--- NOTE | 2021-01-12 12:42 | W.ANESPOSTOP ---
Postoperative Evaluation Date, Time and Location Date Performed: 01/12/21 Time Performed: 12:42 Patient Location: Day Surgery Unit Vital Signs Most Recent Imported Vital Signs: Most Recent Vital Signs Temp Pulse Resp BP Pulse Ox 36.1 C L 66 16 162/75 H 97 01/12/21 11:00 01/12/21 11:00 01/12/21 11:00 01/12/21 11:00 01/12/21 11:00 Most Recent Manually Entered Vital Signs: Adult Blood Pressure: 168/72 Heart Rate: 55 Respirations: 12 Oxygen Saturation (%): 99 Temperature (C): 36.4 C Pain Score (0-10 Scale): 0 Pain Score Most Recent Pain Score: Most Recent Pain Score Pain Level 0 01/12/21 11:00 Assessment Mental Status: Awake (Alert & Oriented to Patient Baseline) Airway and Respiratory Function: Patent airway with normal (patient baseline) respiratory exam Cardiovascular Function: Hemodynamically Stable Hydration Status: Adequately Hydrated Nausea & Vomiting: No Nausea or Vomiting Pain: Pt. Denies Any Pain Peripheral Nerve Block: Patient did not receive a nerve block
[2021-01-12 12:43] VITALS: BP 168/72; PULSE 55; RESP 12; TEMPC 36.4; O2SAT 99
== END 2021-01-12 13:07 | disposition home or self-care (01) ==
PROVIDERS: Visit Provider Ophthalmology
PROC: (CPT 66982; principal; 2021-01-12 13:30)
DX: H40.1421 Capsular glaucoma with pseudoexfoliation of lens, left eye, mild stage (principal); H25.12 Age-related nuclear cataract, left eye; I48.91 Unspecified atrial fibrillation; I12.9 Hypertensive chronic kidney disease with stage 1 through stage 4 chronic kidney disease, or unspecified chronic kidney disease; N18.9 Chronic kidney disease, unspecified
CPT/HCPCS: 66982; 0191T; V2632; C1783

== ENCOUNTER 2021-08-24 11:36 | Outpatient (CLI) | payer MEDICARE, OTHER, SELFPAY ==
--- NOTE | 2021-08-24 11:00 | DI.RAD_ITS ---
Exam(s) XR KNEE RT 2V AP,LAT EXAM: XR KNEE RT 2V AP,LAT CLINICAL HISTORY: ANNUAL F/U R TKA. TECHNIQUE: 2D digital imaging was performed. COMPARISON: CR XR KNEE RT 1V from 08/21/2020 FINDINGS: Two views Stable position alignment of components of prosthesis. No fracture or loosening evident. IMPRESSION: DATA REPOSITORY: RADIATION DOSE DELIVERED:
== END 2021-08-24 11:37 | disposition home or self-care (01) ==
LOC: DIORS 11:37
PROVIDERS: Visit Provider Student in an Organized Health Care Education/Training Program
DX: Z96.651 Presence of right artificial knee joint (principal)
CPT/HCPCS: 99213; 73560